=== PATIENT | male | born 1960 | race Caucasian/White ===

== ENCOUNTER → 2018-02-07 | Outpatient (CLI) | payer OTHER | LOC: BMCIMAGING 13:30 | PROVIDERS: ATTEND Internal Medicine | DX: R22.9 Localized swelling, mass and lump, unspecified (principal) ==

== ENCOUNTER → 2018-07-31 | Outpatient (CLI) | payer OTHER | LOC: BMCIMAGING 15:07 | PROVIDERS: ATTEND Internal Medicine | DX: Z09 Encounter for follow-up examination after completed treatment for conditions other than malignant neoplasm (principal) ==

== ENCOUNTER → 2019-01-05 | Outpatient (CLI) | payer OTHER | LOC: BMCIMAGING 10:36 | PROVIDERS: ATTEND Internal Medicine | DX: M89.8X8 Other specified disorders of bone, other site (principal) ==

== ENCOUNTER → 2019-01-12 | Outpatient (CLI) | payer OTHER ==
[~2019-01-12] MED LIST: IOPAMIDOL (ISOVUE-300) 100 ML BTL ONE
== END ==
LOC: FIMAGING 14:19
PROVIDERS: ATTEND Internal Medicine
DX: N20.0 Calculus of kidney (principal); K57.30 Diverticulosis of large intestine without perforation or abscess without bleeding; K76.89 Other specified diseases of liver; J84.10 Pulmonary fibrosis, unspecified; I70.0 Atherosclerosis of aorta; M47.816 Spondylosis without myelopathy or radiculopathy, lumbar region; Z90.89 Acquired absence of other organs
CPT/HCPCS: Q9967